=== PATIENT | male | born 1990 | race Caucasian/White ===

== ENCOUNTER 2020-07-04 15:03 | Emergency (ER) | payer SELFPAY ==
[2020-07-04 16:05] VITALS: BP 124/73; PULSE 115; RESP 18; TEMP 39; O2SAT 99; BMI 23.6
[2020-07-04] MEDS: Ibuprofen 800 MG TABLET PO (16:41)
[2020-07-04] MEDS: Acetaminophen 325 MG TABLET 975 MG PO (16:42)
[2020-07-04 17:39] VITALS: BP 111/77; PULSE 90; RESP 18; TEMP 37.7; O2SAT 98
--- NOTE | 2020-07-04 17:53 | ED.URI ---
HPI - URI/Sore Throat General Chief Complaint: Upper Respiratory Symptoms Stated Complaint: covid swab Time Seen by Provider: 07/04/20 16:12 Source: patient Mode of arrival: ambulatory Limitations: no limitations History of Present Illness HPI Narrative: states he was seen at urgent care 2 days ago with sore throat body aches and chills he had a COVID test that was negative as well as rapid strep that was negative and mono test that was negative. States his main symptoms is sore throat and has continued with fever. He otherwise denies any sick contacts or travel. No abdominal pain, nausea vomiting diarrhea. MD elicited complaint: sore throat Onset (ago): day(s) Consistency: constant Severity: moderate Relieving factors: OTC cold medicine Associated symptoms: sore throat Treatments prior to arrival: none Related Data Previous Rx's Medication Instructions Recorded ibuprofen 800 mg PO Q8H PRN #30 tab 07/04/20 penicillin V potassium 500 mg PO Q12H 10 Days #20 tab 07/04/20 Allergies Allergy/AdvReac Type Severity Reaction Status Date / Time No Known Allergies Allergy Verified 07/04/20 16:14 Review of Systems Review of Systems: Constitutional: No Weight loss, No Fever, + Chills, No Night Sweats, No Fatigue, No Malaise ENT/Mouth: No Hearing loss, No Ear Pain, No Nasal Congestion, No Sinus Pain, No Hoarseness, + sore throat, No Rhinorrhea, No Swallowing Difficulty Eyes: No Eye Pain, No Swelling, No Redness, No Foreign Body, No Discharge, No Vision Changes Cardiovascular: No Chest Pain, No SOB, No Dyspnea on Exertion, No Orthopnea, No Edema, No Palpitations Respiratory: No Cough, No Sputum, No Wheezing, No Smoke Exposure, No Dyspnea Gastrointestinal: No Nausea, No Vomiting, No Diarrhea, No Constipation, No abdominal Pain, No Hematochezia, No Melena Genitourinary: no irregular bleeding, No Dysuria, No Urinary Frequency, No Hematuria, No Urinary Incontinence, No Urgency, No Flank Pain, No Urinary Flow Changes, No Hesitancy Musculoskeletal: No joint pain, No Myalgias, No Joint Swelling Skin: No Skin Lesions, No rash Neuro: No Weakness, No Numbness, No Paresthesias, No Loss of Consciousness, No Dizziness, No Headache Psych: No Social Issues Heme/Lymph: No Bruising, No Bleeding,No Lymphadenopathy Endocrine: No Polyuria, No Polydipsia, No Temperature Intolerance Yes all other systems are reviewed and are negative [facility] Past Medical History Attestation statement: The following information was validated with the patient. Medical History (Updated 07/05/20 @ 14:47 by Alonso Beltrán NP) No known health problems Surgical History (Updated 07/04/20 @ 16:11 by Shadia Blanton) History of testicular surgery Social History Social History Smoking Status: Current every day smoker Use of substances other than those prescribed or required for medical reasons: No Advance Directives: No Advance Directives Information Provided: No Physical Exam Vital Signs: Vital Signs: Vital Signs Temp Pulse Resp BP Pulse Ox 07/04/20 17:39 99.9 F 90 18 111/77 98 07/04/20 16:05 102.2 F H 115 H 18 124/73 99 Body Mass Index 23.6 Reviewed Const: General: cooperative and healthy appearing; No acute distress or intoxicated appearing Nutritional Appearance: average body habitus Orientation/consciousness: patient oriented x3 HENMT: Head: Yes normal to inspection Ears: hearing grossly normal bilaterally Mouth: malodorous breath Throat: Yes abnormal tonsil ( Exudate/erythema) and No peritonsillar mass Eyes: General: appearance normal, both eyes and all related structures Visual Guillen: normal visual guillen by confrontation Neck: Neck: Yes normal visual inspection, No positive Brudzinski's sign, No positive Kernig's sign and No tender Thyroid: Thyroid normal Chest: Chest palpation & inspection: normal inspection of the chest Resp: Effort & Inspection: normal respiratory effort Cardio: Jugular venous distension: no JVD GI: Inspection: Yes normal to inspection Percussion: Yes normal to percussion Auscultation: normal bowel sounds : General: Yes no CVA tenderness Back/Spine/Pelvis: Back: no CVA tenderness Skin: General skin exam: no rashes or lesions noted Neuro: General: patient oriented x3 Extrem: General: Yes normal to inspection MDM - URI/Sore Throat Differential Diagnosis Differential diagnosis: Likely upper respiratory infection and pharyngitis; Unlikely croup, otitis media, sinusitis, viral infection, bronchitis and influenza Discharge Plan Discharge Clinical Impression: Pharyngitis Patient Disposition: Home, Self-Care Instructions: Strep Throat (ED) Additional Instructions: bland diet Salt water gargle Push fluids Take medications prescribed disposed of toothbrush after 24 hour use of antibiotic No utensils/cuff sharing Return if any concerns or symptoms otherwise follow up as instructed Prescriptions: New penicillin V potassium 500 mg tablet 500 mg PO Q12H 10 Days Qty: 20 RF: 0 ibuprofen 800 mg tablet 800 mg PO Q8H PRN (Reason: pain) Qty: 30 RF: 0 Referrals: ED Physician,Generic [Physician] - 2 days ( your primary care doctor for recheck in 2 days) Stand Alone Forms: Work/School Release Interventions: ED Discharge Assessment Last Done: 07/04/20 18:56 Discharge Date/Time: 07/04/20 18:20
== END 2020-07-04 18:20 | disposition home or self-care (01) ==
PROVIDERS: Emergency Provider Emergency Medicine
DX: J02.9 Acute pharyngitis, unspecified (principal); M79.10 Myalgia, unspecified site; F17.200 Nicotine dependence, unspecified, uncomplicated; Z71.6 Tobacco abuse counseling; Z20.828 Contact with and (suspected) exposure to other viral communicable diseases
CPT/HCPCS: 87071; 87880; 99284